=== PATIENT | female | born 1965 | race Caucasian/White ===

== ENCOUNTER 2023-09-22 13:38 | Outpatient (RCR) | payer OTHER, SELFPAY ==
[2023-09-22 14:00] VITALS: BP 116/80
[2023-09-22 14:45] VITALS: BP 116/67; BP 120/77
== END 2023-10-02 23:59 | disposition home or self-care (01) ==
LOC: OID 13:38
PROVIDERS: ATTENDING PHYSICIAN Internal Medicine Hematology & Oncology; FAMILY PHYSICIAN Family Medicine
DX: E83.110 Hereditary hemochromatosis (principal)
CPT/HCPCS: 99195

== ENCOUNTER 2023-11-20 14:38 | Outpatient (RCR) | payer OTHER, SELFPAY ==
[2023-11-20 14:50] VITALS: BP 153/89
[2023-11-20 15:40] VITALS: BP 139/89
[2023-11-20 15:45] VITALS: BP 139/89
== END 2023-12-02 23:59 | disposition home or self-care (01) ==
LOC: OID 14:38
PROVIDERS: ATTENDING PHYSICIAN Internal Medicine Hematology & Oncology; FAMILY PHYSICIAN Registered Nurse
DX: E83.110 Hereditary hemochromatosis (principal)
CPT/HCPCS: 99195

== ENCOUNTER 2024-02-10 14:21 | Outpatient (RCR) | payer OTHER, SELFPAY ==
[2024-02-10 15:00] VITALS: BP 123/86
[2024-02-10 15:30] VITALS: BP 135/72
[2024-02-10 15:35] VITALS: BP 126/64
== END 2024-02-11 10:53 | disposition home or self-care (01) ==
LOC: OID 14:21
PROVIDERS: ATTENDING PHYSICIAN Internal Medicine Hematology & Oncology; FAMILY PHYSICIAN Registered Nurse
DX: E83.110 Hereditary hemochromatosis (principal)
CPT/HCPCS: 99195

== ENCOUNTER → 2024-03-08 06:29 | Day surgery (SDC) | payer OTHER, SELFPAY | LOC: GI 06:29 | PROVIDERS: ATTENDING PHYSICIAN Internal Medicine | DX: Z12.11 Encounter for screening for malignant neoplasm of colon (principal); D12.5 Benign neoplasm of sigmoid colon; K64.4 Residual hemorrhoidal skin tags; Z86.010 Personal history of colon polyps | CPT/HCPCS: 45385; 88305 ==

== ENCOUNTER 2024-04-08 13:48 | Outpatient (RCR) | payer OTHER, SELFPAY ==
[2024-04-08 14:10] VITALS: BP 116/78
[2024-04-08 14:53] VITALS: BP 134/59
[2024-04-08 14:56] VITALS: BP 151/78
== END 2024-04-09 11:40 | disposition home or self-care (01) ==
LOC: OID 13:48
PROVIDERS: ATTENDING PHYSICIAN Internal Medicine Hematology & Oncology; FAMILY PHYSICIAN Family Medicine
DX: E83.110 Hereditary hemochromatosis (principal)
CPT/HCPCS: 99195

== ENCOUNTER 2024-06-03 14:27 | Outpatient (RCR) | payer OTHER, SELFPAY ==
[2024-06-03 14:45] VITALS: BP 109/68
[2024-06-03 15:25] VITALS: BP 105/69
[2024-06-03 15:30] VITALS: BP 109/66
== END 2024-06-03 23:59 | disposition home or self-care (01) ==
LOC: OID 14:27
PROVIDERS: ATTENDING PHYSICIAN Internal Medicine Hematology & Oncology; FAMILY PHYSICIAN Family Medicine
DX: E83.110 Hereditary hemochromatosis (principal)
CPT/HCPCS: 99195

== ENCOUNTER → 2024-06-07 13:23 | Outpatient (REF) | payer OTHER, SELFPAY | LOC: HWWDC 13:23 | PROVIDERS: ATTENDING PHYSICIAN Family Medicine | DX: Z12.31 Encounter for screening mammogram for malignant neoplasm of breast (principal) | CPT/HCPCS: 77063; 77067 ==

== ENCOUNTER 2024-07-31 16:57 | Inpatient (IN) | payer OTHER, SELFPAY ==
[2024-07-31] VITALS (12 sets, daily range): BP systolic 101–145; BP diastolic 63–98; BMI 19.4; BMI 19.2
[2024-07-31] MEDS: LOW STRENGTH ASPIRIN 324 MG PO (15:24)
[2024-07-31] MEDS: NITROSTAT (SUBLINGUAL) 0.4 MG SL (15:24)
--- NOTE | 2024-07-31 15:32 | ED.GENMED ---
History of Present Illness
General
Chief Complaint: Chest Pain
Source: patient
Exam Limitations: none
Time Seen by Provider: 07/31/24 15:15
Nursing documentation reviewed up to this point in time: agreed with
History of Present Illness
History of Present Illness:
59-year-old female with a past medical history of hyperlipidemia, migraines who presents to the emergency department for evaluation of chest pain. 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 She says that
pain lasted for about 30 minutes and resolved when she went upstairs to rest. She says pain returned shortly thereafter and once again resolved with some rest. She says just prior to arrival symptoms started again and they have been consistent and
much more intense which prompted her to finally come to the ER. She describes a crushing substernal chest pain associated with shortness of breath. She denies any recent illness or cough but says she has been under significant stress recently.
She says she has never had similar symptoms in the past that she said she has had chest pains from panic attacks/anxiety but never pains like today. She denies any personal history of heart disease but has seen Dr. Owen in the past for
evaluation after she was found to have a trace pericardial effusion. She does have a strong family history of heart disease says that both her sister and mother had PR.
Review of Systems
Review of Systems
All Other Systems: ROS reviewed and negative except as documented in HPI and ROS
Constitutional: Denies fever or chills
Respiratory: Reports trouble breathing
Cardiac: Reports chest pain
ABD/GI: Denies abdominal pain, nausea, vomiting or diarrhea
: Denies flank pain
Musculoskeletal: Denies neck pain or back pain
Neurological: Denies dizzy or headache
Phy Exam
Physical Exam
Physical Exam:
General: Awake, alert, oriented x3; anxious but no acute distress
Head: Normocephalic, atraumatic
Eyes: Conjunctiva normal
Throat: Airway intact, handling secretions
Neck: Trachea midline, supple without meningismus
Lungs: Clear to auscultation bilaterally, no wheezing, rales, rhonchi
Heart: Regular rate and rhythm, no murmurs, gallops, or rubs
Abd: Soft, non distended, nontender
Neuro: Cranial nerves grossly intact, speech fluid
Extremities: No edema in extremities, equal pulses in all extremities
Scores
Heart Failure Risk
Heart Failure Risk Score: Not Applicable
Heart Score for Chest Pain Patients
STEMI patient?: No
History: Highly Suspicious
ECG: Nonspecific Repolarization
Age: >45 - <65 years
Risk Factors: 1 or 2 Risk Factors
Troponin: >/= 3 x Normal Limit
Heart Score for Chest Pain Patients: 7
Heart Score Risk: 72.7 % MACE over next 6 weeks
Withdrawal Assessment of Alcohol
Withdrawal Assessment Completed?: Not applicable
Course
Orders/Labs/Results
Orders:
Orders
07/31/24 15:04
Electrocardiogram (*1) Urgent
Reason for Study: Chest Pain
EKG- Treatment ONCE
07/31/24 15:05
CXR2 [CR Chest - 2 Views ] Urgent
Comment:
Reason For Exam: chest pain
07/31/24 15:15
Electrocardiogram (*1) Urgent
Reason for Study: Chest Pain
EKG- Treatment ONCE
07/31/24 15:22
Complete Blood Count/With Diff Urgent
Comprehensive Metabolic Panel Urgent
Troponin I Urgent
07/31/24 15:23
Aspirin Chewable [Low Strength Aspirin] 324 mg PO NOW STA
07/31/24 15:24
Nitroglycerin 100 mg/250 ml [Nitroglycerin Premix] 100 mg in 250 ml IV NOW
Initial dose in mcg/min, then titrate:: 5
Titrate to keep:: SBP < 160 mmHg
Titrate by mcg/min:: 5 mcg/min, may increase by 10 mcg/min if dose > 20 mcg/min
Frequency of titrations (minutes):: every 3-5 minutes
Maximum dose in mcg/min:: 200
Begin to taper infusion when:: Remained at goal for 2hrs
Taper by mcg/min:: 5 mcg/min
Frequency of taper (minutes) if patient maintains goal:: 30
Taper to off?: Yes
If infusion off & no longer maintaining goal:: Contact Provider
Nitroglycerin Sublingual [Nitrostat (Sublingual)] 0.4 mg SL NOW STA
07/31/24 15:32
Electrocardiogram (*1) Urgent
Reason for Study: Chest Pain
EKG- Treatment ONCE
07/31/24 15:49
Heparin 3,300 units IV NOW STA
Nursing to Place Non Medication Order As Directed
Physician Order: PTT 6 hours after initial start of Heparin infusion
07/31/24 16:00
Heparin 61747 Units/250 ml 25,000 units in 250 ml IV PER PROTOCOL
Weight to be used for heparin protocol in kilograms (kg):: 54.4
Protocol:: Cardiac Tx/Acute Coronary
PTT Goal Range to be used:: PTT 73 to 111 seconds
Order type:: Initial
INITIAL Infusion Dose (UNITS/KG/hr) & then follow protocol:: 15 units/kg/hr
Infusion Dose in UNITS/hr & then follow protocol (UNITS/hr):: 800
INFUSION RATE in mL/hr & then follow protocol (mL/hr):: 8
PTT less than or equal to 64 seconds:: Increase rate by 200 units/hr (+ 2 mL/hr)
PTT 64.1 to 72.9 seconds:: Increase rate by 100 units/hr (+ 1 mL/hr)
PTT 73 to 111 seconds:: Target Range. No change in rate.
PTT 111.1 to 130.9 seconds:: Decrease rate by 100 units/hr (- 1 mL/hr)
PTT 131 to 199.9 seconds:: HOLD for 1 hr. Then decrease rate by 200 units/hr (- 2 mL/hr)
PTT greater than or equal to 200 seconds:: HOLD for 2 hrs & Notify Provider. Then decrease by 200 units/hr (-
2 mL/hr)
Lab follow-up:: Each change, PTT q6h until 2 consecutive are therapeutic. Then PTT
daily.
07/31/24 16:20
Electrocardiogram (*1) Urgent
Reason for Study: Chest Pain
EKG- Treatment ONCE
07/31/24 16:30
Troponin I Q8H
07/31/24 16:34
Admit/Transfer Patient As Directed
Co-Sign Provider:
Level of Care: Inpatient admission
Assign to:: IVU
Physician / Group: anai
Diagnosis: nstemi
Reason for Hospitalization: nstemi
Expected length of stay greater than two midnights?: Yes
ELOS- Estimated Length of Stay in days: 2
I certify the patient meets the requirements for IP care: Yes
PRN Pain Medication Management As Directed
May give lesser potent ordered pain med per pt: Yes
preference::
Protocol:: Medication orders for pain may be administered in a
manner that supports deferring to patient preference
when the pt is:
- Requesting an ordered lesser potent pain medication.
Least to most potent pain medications are defined
as: acetaminophen < NSAID < tramadol < opioids
(morphine, oxycodone, hydromorphone).
- Requesting a lesser dose of the same medication IF
ORDERED.
- Requesting a less intrusive route of administration
if both routes are prescribed by the provider (PO <
IV).
07/31/24 16:35
Code Status As Directed
Resuscitation Status: Full Code
07/31/24 17:08
PTT Urgent
Comment: Obtain baseline before beginning heparin infusion if not already collected
07/31/24 18:00
Rosuvastatin Calcium [Crestor] 40 mg PO QPM
08/01/24 00:30
Troponin I Q8H
08/01/24 08:00
Aspirin Chewable [Low Strength Aspirin] 81 mg PO DAILY
08/01/24 08:30
Troponin I Q8H
Abnormal Lab Results
07/31/24
15:22
MCH 31.8 H pg
(27.0-31.0)
BUN 19 H mg/dl
(7-17)
Glucose 142 H mg/dl
(70-99)
Alkaline Phosphatase 36 L U/L
(38-126)
Troponin I 0.038 H* ng/ml
07/31/24 15:22
07/31/24 15:22
Vital Signs
Initial and Last Documented VS:
Initial Vital Signs
Pulse Resp BP Pulse Ox
56 18 132/93 100
07/31/24 15:12 07/31/24 15:12 07/31/24 15:12 07/31/24 15:12
Last Documented Vital Signs
Temp Pulse Resp BP Pulse Ox
36.4 C 68 22 120/96 100
07/31/24 15:20 07/31/24 16:31 07/31/24 16:31 07/31/24 16:31 07/31/24 16:31
MDM/Problems Addressed
Differential Diagnosis Includes:
ACS/PR, GERD, costochondritis, panic attack; PE less likely with no tachycardia or tachypnea or hypoxia; aortic dissection less likely without significant hypertension
MDM/Problems Addressed:
59-year-old female presents for evaluation of crushing chest pain intermittent earlier today and now constant and more intense. Associate with mild shortness of breath. EKG on arrival shows some inferior ST depressions and anterior T wave
inversions new compared to prior. Brought back to room immediately. Case discussed with bail bondsman�no ST elevations indication for emergent Academic Dean for now but recommended optimal medical treatment and try to get patient chest
pain-free. She was given 324 mg chewable aspirin and sublingual nitro�this improved her chest pain from 7/8 out of 10 to a 6 out of 10. Will start on nitroglycerin infusion. Usual labs sent off including a CBC and a CMP, troponins. Check a chest
x-ray. Monitor very closely�if unable to improve chest pain may need more urgent cardiac catheterization. I did discuss with general cardiology to evaluate in the ER.
Chest pain improvement with nitroglycerin. Serial EKGs show improving ST changes. Continue to monitor and titrate nitroglycerin for chest pain resolution.
Cardiology at bedside, proceed with nitroglycerin infusion to improve chest pain, will empirically start heparin infusion. Given 324 chewable aspirin. Plan for hospital admission however if unable to control chest pain with nitroglycerin infusion
may consider more expeditious cardiac cath.
Initial labs reviewed: CBC and CMP no clinically significant abnormalities. Her troponin is elevated at 0.038. Will continue to trend. Titrate nitro to chest pain. Discussed with hospitalist for admission for continued treatment of NSTEMI.
Patient reports that she is now chest pain-free on nitroglycerin infusion. Updated bail bondsman�if chest pain returning or precipitous rise in troponins consider more urgent cath but for now continue with medical management.
Chronic conditions affecting care:
Hyperlipidemia
*Pulse Oximetry
Patient hypoxic: no
*EKG
Interpreted by ED Provider?: Yes
Heart Rate: 53
Rate: normal
Rhythm: sinus
Reese: normal axis
Interval: normal interval
QRS Pattern: normal QRS
Ischemia: ST depression
*Critical Care Note
Total Time (30-74mins, 75-104mins- exclusive of procedures): Not Applicable
Data Reviewed
Source: patient, records and family
Patient Management
Discussion with other providers: Contact Person (Discussed with interventional cardiology, discussed with general cardiology)
Escalation/DeEscalation of care consider admission/obs:
Admission indicated
ED Attending Note
-
Portions of this chart may have been created with voice recognition software.� Occasional wrong word or��sound alike� substitutions may have occurred due to the inherent limitations of voice recognition software.
Discharge Plan
Departure
Patient Disposition: Admit
Date of Disposition: 07/31/24
Time of Disposition: 16:06
Admit to doctor: Anai
Presentation/result/management discussed w/ accepting MD/DO: Hospitalist
Discharge Problem:
Non-ST elevation PR (NSTEMI)
Interventions
Interventions:
*Risk Screen - Suicide Last Done: 07/31/24 15:16
*General Assessment Last Done: 07/31/24 15:16
*Neglect/Abuse Screening Last Done: 07/31/24 15:16
ED- Fall Risk Assessment Last Done: 07/31/24 16:06
*ED COVID-19 Vaccine History Last Done: 07/31/24 15:50
ED- Cardiac Assessment Last Done: 07/31/24 15:51
[2024-07-31 15:33] LABS: % Basophils 0.6 % (0-2); % Eosinophils 0.6 % (0-6); % Immature Granulocytes 0.5 % (0-0.5); % Monocytes 7.5 % (1.7-9.3); % Neutrophils 64.8 % (42.2-75.2); Absolute Basophils 0.1 10^3/uL (0-0.2); Absolute Eosinophils 0.1 10^3/uL (0-0.7); Absolute Lymphocytes 2.1 10^3/uL (1.2-3.4); Absolute Monocytes 0.6 10^3/uL (0.1-0.6); Absolute Neutrophils 5.3 10^3/uL (1.4-6.5); Hematocrit 41.3 % (37.0-47.0); Hemoglobin 14.6 g/dL (12.0-16.0); Mean Corp Hgb Conc. 35.4 g/dL (33.0-37.0); Mean Corpuscular Hgb 31.8 pg (27.0-31.0); Mean Platelet Volume 8.8 fL (7.4-10.4); Nucleated Red Blood Cells % 0 %; Platelet Count 261 10^3/uL (130-400); Red Blood Cell Count 4.59 10^6/uL (4.20-5.40); Red Cell Dist. Width 12.1 % (11.5-14.5); White Blood Cell Count 8.1 10^3/uL (4.8-10.8)
[2024-07-31] MEDS: NITROGLYCERIN PREMIX 250 IV (15:42)
[2024-07-31 15:45] LABS: ALT (SGPT) 20 U/L (0-35); AST (SGOT) 27 U/L (14-36); Albumin 4.6 g/dl (3.5-5.0); Alkaline Phosphatase 36 U/L (38-126); Blood Urea Nitrogen 19 mg/dl (7-17); Calcium 9.9 mg/dl (8.4-10.2); Carbon Dioxide 23 mmol/L (22-30); Chloride 102 mmol/L (98-107); Estimated Creatinine Clearance 73 ml/min; Glucose 142 mg/dl (70-99); Potassium 3.6 mmol/L (3.5-5.1); Sodium 137 mmol/L (135-145); Total Bilirubin 0.4 mg/dl (0.2-1.3); Total Protein 6.8 g/dl (6.3-8.2); eGFR > 60.00
[2024-07-31 16:00] LABS: Troponin I 0.038 ng/ml
--- NOTE | 2024-07-31 16:05 | CON.CAR ---
Consultation
Consultation Request
Date/Time Consultation Requested: July 31, 2024 3:20 PM
Date/Time Consultation Performed: July 31, 2024 4:05 PM
Requesting Provider: Emergency room
Performing Provider: Geraldo Castano
Reason for Consultation: Chest pain
Medical History
-
Chief Complaint: Chest pain
History of Present Illness:
59-year-old female with past medical history of dyslipidemia, migraine, osteoporosis and family history of early CAD who is here for sudden onset of chest pain. She tells me that she was fine up until this afternoon at about 1 or 130. She
developed sudden onset of substernal chest pain. She describes it as squeezing and pressure-like. It also radiates down to her bilateral arms. She thought this was anxiety related sat down and it went away shortly thereafter. However, it came
back twice and after the third time it did not go away and she decided to present to the emergency room. She did have emesis as well en route to the emergency room. Upon review of ECG she does have ST depressions in the inferior leads. She was
given sublingual nitroglycerin with some relief and is now on a nitroglycerin drip. She has had 1 episode of emesis as well.
Past Medical History
Past Medical History: Other (Dyslipidemia, osteoporosis, migraine and family history of early CAD)
Past Surgical History: None
Social History
Tobacco: Non-Smoker
Alcohol: None
Personal:
Family History
Family History: CAD
Allergies / Home Medications
Allergy/AdvReac Type Severity Reaction Status Date / Time
No Known Allergies Allergy Verified 07/31/24 15:16
�Medication �Instructions �Recorded �Confirmed �Type
magnesium oxide 1 cap PO DAILY 01/14/22 06/03/24 History
calcium 220 mg capsule 400 mg PO DAILY 04/22/22 06/03/24 History
alendronate 40 mg tablet 40 mg PO .WEEKLY 08/06/22 06/03/24 History
rizatriptan 10 mg tablet 10 mg PO PRN PRN MIGRAINE 10/24/22 06/03/24 History
rosuvastatin 10 mg tablet 10 mg PO HS 10/24/22 06/03/24 History
cholecalciferol (vitamin D3) 25 25 mcg PO DAILY 04/08/24 06/03/24 History
mcg (1,000 unit) capsule (Vitamin
D3)
rimegepant 75 mg disintegrating 75 mg PO .EVERYOTHER DAY 06/03/24 06/03/24 History
tablet (Nurtec ODT)
Review of Systems
-
All other systems: Negative unless noted
Physical Exam
Vital Signs
Temp Pulse Resp BP Pulse Ox
97.5 F 80 19 130/80 99
07/31/24 15:20 07/31/24 15:45 07/31/24 15:45 07/31/24 15:40 07/31/24 15:45
Lab Results
07/31/24 15:22
07/31/24 15:22
Troponin I 0.038 ng/ml H* 07/31/24 15:22
Physical Exam
General: Well Developed, Well Nourished and Pain
HEENT: Normocephalic and Anicteric
Respiratory: Clear and Non Labored Respirations
Cardiac: Regular Rhythm and Other (No murmur rub or gallop)
GI: Soft
Musculoskeletal: No Clubbing and No Edema
Skin: Warm and Dry
Neuro: AO x 3
Psych: Calm
Impression / Plan
-
A: 59-year-old female with past medical history of dyslipidemia, migraine, osteoporosis and family history of early CAD who is here for sudden onset of chest pain.
NSTEMI with positive troponin and typical anginal symptoms
If she continues to have chest pain and symptoms of angina despite nitroglycerin drip this would prompt early intervention
-Aspirin, heparin, nitro drip
-Statin
-trend troponin
-ECG with new/worsening CP
-Echocardiogram
-She is currently normotensive and heart rate is well-controlled
-Current plan would be for Hydroelectric Machinery Mechanic Helper Friday with n.p.o. after midnight on Friday if she does not have further chest pain or other symptoms
Dyslipidemia
-Increase rosuvastatin to 40 nightly
Migraine
Osteoporosis
Data Reviewed
-
EKG: Tracing Personally Visualized and interpreted (sr), Report Reviewed by me, Discussed with Physician, Discussed with Nurse and Discussed with Patient
Labs: Labs Reviewed by me, Discussed with Physician, Discussed with Patient and Discussed with Family
--- NOTE | 2024-07-31 16:36 | HPS.HSE ---
Family Physician
-
Family Physician: Lindy Tran
Chief Complaint
-
chest pain
History of Present Illness
59-year-old female past medical history of hemochromatosis, osteoporosis, hyperlipidemia, migraines, presenting for chest pain. She developed chest pain 2 hours prior to arrival while she was hosting a [employer] party. Pain lasted for 30 minutes
and resolved when she went upstairs to rest. Pain returned shortly thereafter and resolved with some rest. Symptoms started again and were much more severe. Pain is described as crushing substernal chest pain associate with shortness of breath.
She denies any recent illness or cough but has been under significant amount of stress recently. She has had chest pain in the past due to panic attacks that/anxiety never pain like this today. She denies any personal history of heart disease but
has seen Dr. Torre in the past after she was found to have trace pericardial effusion.
Pain also radiates into the abdomen. She is having vomiting. Denies diarrhea.
Denies smoking or alcohol use.
Medical History
Past Medical History
Past Medical History: Reports Other ( hemochromatosis, osteoporosis, hyperlipidemia, migraines)
Past Surgical History: Reports None
Social History
Tobacco: Non-smoker
Alcohol: None
Drug: None
Family History
Family History: Other ( Her sister and mother had DC.)
Allergies / Home Medications
Allergies reflects when Allergies were last updated in [facility].
Home Medications with original date entered in [facility]
Allergy/Medication List:
Allergies
Allergy/AdvReac Type Severity Reaction Status Date / Time
No Known Allergies Allergy Verified 07/31/24 15:16
Home Medications
magnesium oxide 1 cap PO DAILY 01/14/22
calcium 220 mg capsule 400 mg PO DAILY 04/22/22
alendronate 40 mg tablet 40 mg PO .WEEKLY 08/06/22
rizatriptan 10 mg tablet 10 mg PO PRN PRN MIGRAINE 10/24/22
rosuvastatin 10 mg tablet 10 mg PO HS 10/24/22
cholecalciferol (vitamin D3) 25 mcg (1,000 unit) capsule (Vitamin D3) 25 mcg PO DAILY 04/08/24
rimegepant 75 mg disintegrating tablet (Nurtec ODT) 75 mg PO .EVERYOTHER DAY 06/03/24
Review of Systems
-
History Source: Patient
A 12 point ROS was completed and negative except as noted: Yes
Constitutional: Reports No Symptoms
EENT: Reports No Symptoms
Respiratory: Reports See HPI
Cardiac: Reports See HPI
Abdomen/GI: Reports See HPI
: Reports No Symptoms
Musculoskeletal: Reports No Symptoms
Skin: Reports No Symptoms
Neurological: Reports No Symptoms
Endocrine: Reports No Symptoms
Hematologic/Lymphatic: Reports No Symptoms
Psych: Reports No Symptoms
Physical Exam
Vital Signs
Vital Signs
Temp Pulse Resp BP Pulse Ox
97.5 F 68 22 120/96 100
07/31/24 15:20 07/31/24 16:31 07/31/24 16:31 07/31/24 16:31 07/31/24 16:31
Physical Exam
General: Well Developed, Well Nourished and No Apparent Distress
HEENT: NormoCephalic, Moist mucous membranes and Atraumatic
Respiratory: Clear
Cardiac: S1/S2 and Regular Rhythm; No Murmur or Rub
GI: Soft, Non Tender, Non Distended and Normal Bowel Sounds; No Organomegaly
Rectal: Deferred by Provider
Musculoskeletal: No Clubbing, No Cyanosis and No Edema
Skin: No Rash
Neuro: Nonfocal/grossly intact
Laboratory Results
-
07/31/24 15:22
07/31/24 15:22
Laboratory Results
Total Bilirubin 0.4 mg/dl (0.2-1.3) 07/31/24 15:22
AST 27 U/L (14-36) 07/31/24 15:22
ALT 20 U/L (0-35) 07/31/24 15:22
Alkaline Phosphatase 36 U/L (38-126) L 07/31/24 15:22
Troponin I 0.038 ng/ml H* 07/31/24 15:22
Data Reviewed
-
Lab Data: Labs Reviewed by me
Old Records: Reviewed
Impression/Plan
-
IMPRESSION:
PLAN:
# NSTEMI
-Troponin of 0.038
-EKG shows sinus bradycardia, T wave inversions V1, V2
-Trend troponins
-Aspirin given
-Heparin drip
-Nitroglycerin drip
-Cardiology consulted and recommended monitoring troponins and if worsening condition they will take to catheterization tonight
-N.p.o., Zofran
-Statin increased
Hemochromatosis
Osteoporosis
Hyperlipidemia
-Continue statin
Migraines
Full code
DVT prophylaxis�heparin
N.p.o.
[2024-07-31] MEDS: HEPARIN 3300 UNITS IV (17:00)
[2024-07-31] MEDS: HEPARIN 25000 UNITS/250 ML IV (17:01)
[2024-07-31 17:24] LABS: APTT 25.6 Sec (23.4-35.0)
[2024-07-31] MEDS: TYLENOL 1000 MG PO (17:30)
[2024-07-31] MEDS: CRESTOR 40 MG PO (21:11)
[2024-07-31] MEDS: KCL 40 MEQ PO (21:12)
[2024-07-31] MEDS: MAXALT MLT (ORALLY DISINTEGRATING) 10 MG PO (21:12)
[2024-07-31 21:31] LABS: Magnesium 1.9 mg/dl (1.6-2.3)
[2024-07-31] MEDS: MAGNESIUM SULFATE 100 IV (22:18)
--- NOTE | 2024-07-31 23:32 | PTCARENOTE ---
Pt received from ED ~1900 and admitted to room 0. Pt AAOx3. GOEL. Pt transitioned onto IVU bed w/ minimal assist. Pt SR w/ frequent PVCs on the tele monitor. HR 60-70s. BP stable. No edema. Palpable pulses throughout. Pt 96-98% on RA. Lung sounds
audible B/L. Pt abdomen soft/nontender.
+BS. Intermittent nausea. Pt voiding w/o issue. PIV x2 C/D/I. Heparin and Nitro infusing upon arrival. Monitor handoff communication completed w/ ED nurse. Admission questioned completed. Pt oriented to room.
Pt had 14 beat run ~ 2038 and felt a 'flutter' in her chest. BP 109/74. HR remained in the 60-70s. At the same time, pt also c/o headache. Pt w/ history of migraines. LEAD TECHNICIAN Victoria Mary notified. KCl 40 meq PO, magnesium sulfate, and pt home med for
migraines ordered and administered - see OCT.
See worklist for full nursing assessment and interventions. Call silva within reach.
[2024-07-31 23:35] LABS: APTT 118.8 Sec (23.4-35.0)
[2024-08-01] VITALS (16 sets, daily range): BP systolic 94–117; BP diastolic 41–93; BMI 19.3
[2024-08-01] MEDS: TYLENOL 650 MG PO ×3 (00:04→19:28)
[2024-08-01] MEDS: ZOFRAN 4 MG IV (01:14)
[2024-08-01 05:41] LABS: % Basophils 0.1 % (0-2); % Eosinophils 0.2 % (0-6); % Immature Granulocytes 0.2 % (0-0.5); % Monocytes 4.2 % (1.7-9.3); % Neutrophils 84.3 % (42.2-75.2); Absolute Lymphocytes 0.9 10^3/uL (1.2-3.4); Absolute Monocytes 0.4 10^3/uL (0.1-0.6); Absolute Neutrophils 7.1 10^3/uL (1.4-6.5); Hematocrit 36.3 % (37.0-47.0); Hemoglobin 12.5 g/dL (12.0-16.0); Mean Corp Hgb Conc. 34.4 g/dL (33.0-37.0); Mean Corpuscular Hgb 31.6 pg (27.0-31.0); Mean Corpuscular Volume 91.9 fL (81.0-99.0); Mean Platelet Volume 9.3 fL (7.4-10.4); Nucleated Red Blood Cells % 0 %; Platelet Count 225 10^3/uL (130-400); Red Blood Cell Count 3.95 10^6/uL (4.20-5.40); Red Cell Dist. Width 12.3 % (11.5-14.5); White Blood Cell Count 8.4 10^3/uL (4.8-10.8)
[2024-08-01 05:50] LABS: APTT 93.3 Sec (23.4-35.0)
[2024-08-01 06:05] LABS: ALT (SGPT) 31 U/L (0-35); AST (SGOT) 167 U/L (14-36); Albumin 4.1 g/dl (3.5-5.0); Alkaline Phosphatase 29 U/L (38-126); Blood Urea Nitrogen 21 mg/dl (7-17); Carbon Dioxide 25 mmol/L (22-30); Chloride 102 mmol/L (98-107); Estimated Creatinine Clearance 73 ml/min; Glucose 139 mg/dl (70-99); Potassium 4.5 mmol/L (3.5-5.1); Sodium 134 mmol/L (135-145); Total Bilirubin 0.8 mg/dl (0.2-1.3); Total Protein 6.2 g/dl (6.3-8.2); eGFR > 60.00
[2024-08-01] MEDS: LOW STRENGTH ASPIRIN 81 MG PO (07:52)
[2024-08-01] MEDS: MAXALT MLT (ORALLY DISINTEGRATING) 10 MG PO (07:54)
--- NOTE | 2024-08-01 09:09 | W.PN.HOSP.TC ---
Today's Communication/Plan
-
see bold
Assessment / Plan
Assessment / Plan
Gen: NAD, AAOx3.
Eyes: EOMI, PERRLA, no scleral icterus.
Neck: supple.
CV: RRR, +S1/S2, no m/r/g.
Resp: CTAB, no rales, wheezes, or rhonchi.
Abd: +BS, soft, NT, ND
Skin: No rashes.
Neuro: CN 2-12 intact, non-focal.
Psych: Normal mood and affect.
NSTEMI:
-Troponin increased to 31, appears to have plateaued, cont to trend
-EKG showed sinus bradycardia, TWi V1-V2 on admission. Repeat ECG with mild TWi in V1.
-cont Heparin/NTG gtts
-cont ASA/statin
-for cath, timing TBD
-check echo
Other problems:
Hemochromatosis
Osteoporosis
Hyperlipidemia: cont statin
Migraines
FULL/heparin gtt
Anticipated Discharge: 24 - 48 hours
Subjective/Interval History
-
Date of Service: August 01, 2024
Reports R-sided chest discomfort.
Objective Data
-
Labs:
Laboratory Results
07/31/24 08/01/24 08/01/24
23:17 05:23 11:30
WBC 8.4
Hgb 12.5
Hct 36.3 L
Plt Count 225
APTT 118.8 H 93.3 H Pending
Sodium 134 L
Potassium 4.5
Chloride 102
Carbon Dioxide 25
BUN 21 H
Creatinine 0.7
Glucose 139 H
Calcium 9.0
Total Bilirubin 0.8
AST 167 H
ALT 31
Alkaline Phosphatase 29 L
Vital Signs:
Vital Signs
Temp Pulse Resp BP Pulse Ox
98.4 F 64 20 111/66 99
08/01/24 07:38 08/01/24 07:15 08/01/24 07:38 08/01/24 05:16 08/01/24 07:38
I&O
07/31/24 08/01/24 08/02/24
06:59 06:59 06:59
Intake Total 104 / 104
Balance 104 / 104
--- NOTE | 2024-08-01 10:00 | PTCARENOTE ---
Assumed care. Patient with 1 out 10 right chest pressure, headache is resolving. Nitro gtt at 5 mcg/min and heparin gtt 700 units per hour. Troponin climbing. laborer tree tapping activated
--- NOTE | 2024-08-01 10:38 | PTCARENOTE ---
Report called to the record label intern, Patient transported in her bed. in her room
[2024-08-01 11:06] LABS: ACT-LR - POC 210 Seconds (116-155)
--- NOTE | 2024-08-01 11:28 | W.PN.CD ---
Today's Communication / Plan
-
Cath today
Impression / Plan
-
A: 59-year-old female with past medical history of dyslipidemia, migraine, osteoporosis and family history of early CAD who is here for sudden onset of chest pain.
NSTEMI with positive troponin and typical anginal symptoms
If she continues to have chest pain and symptoms of angina despite nitroglycerin drip this would prompt early intervention
-Aspirin, heparin, nitro drip
-Statin
-ECG with new/worsening CP
-Echocardiogram Friday
-sawyer cork slabs today
Dyslipidemia
-Increase rosuvastatin to 40 nightly
Migraine
Osteoporosis
Subjective: Dull aching slight right axillary pain, no CP or jaw pain, migraine and nausea
Physical Exam
Vital Signs/Labs
Vital Signs
Temp Pulse Resp BP Pulse Ox
98.4 F 63 20 111/93 99
08/01/24 07:38 08/01/24 10:00 08/01/24 07:38 08/01/24 09:52 08/01/24 07:38
07/31/24 08/01/24 08/02/24
06:59 06:59 06:59
Actual Weight 119 lb 7.849 oz
08/01/24 05:23
08/01/24 05:23
APTT 93.3 Sec (23.4-35.0) H 08/01/24 05:23
Magnesium 1.9 mg/dl (1.6-2.3) 07/31/24 15:22
LAB Results
07/31/24 07/31/24 07/31/24
15:22 18:47 19:01
Troponin I 0.038 H* 7.530 H* D Cancelled
08/01/24 08/01/24 08/01/24
01:17 05:23 08:39
Troponin I 31.200 H* D 31.300 H* 31.300 H*
Physical Exam
Constitutional: No acute distress and Comfortable
EENT: Anicteric
Cardiovascular: Rhythm & rate is regular and Pedal edema is absent
Respiratory: Respiratory effort normal and Lungs clear to auscul.
GI: Soft
Neuro/Psych: AO x 3
Data Reviewed
-
Date of Service: August 01, 2024
Medical Decision Making: Reviewed Test Results
EKG: Tracing Personally Visualized and interpreted (sr)
Labs: Labs Reviewed by me
--- NOTE | 2024-08-01 11:31 | ITS.CL.CATH ---
Tool Worker - Catheterization
Cardiac Catheterization
Procedure Report:
LEFT HEART CATHETERIZATION
Date of Procedure: August 01, 2024
Referring: Dr. Geraldo Castano
PROCEDURES:
1. Left heart catheterization with coronary and single plane left ventriculography
INDICATION: This is a 59 y/o female with no prior cardiac history who presented to [facility] after the development of substernal chest discomfort and associated neck and jaw pain. She became chest pain free. Her troponin peaked at 31
ng/ml. She continued to experience right axillary discomfort and the decision was made to refer for coronary angiography.
ACCESS: Right radial artery, 6 Fr. sheath
HEMODYNAMICS : (mmHg)
AO (s/d) : 117/67, 89
LV (s/d) : 118/7
LVEDP : 20
CORONARY FINDINGS
DOMINANCE: Right
LEFT MAIN: Normal
LEFT ANTERIOR DESCENDING: The LAD arises normally from the left main and runs in the anterior interventricular groove. The LAD is a large-caliber vessel with a moderate-sized first diagonal branch arising just proximal to the first large septal
instant potato processor. The mid LAD beyond the first diagonal branch has a smooth tapering and possible myocardial bridge. The mid to distal LAD becomes very tortuous but angiographically normal
CIRCUMFLEX: The circumflex arises from the left main with a long tapered segment from the proximal through mid vessel filling a normal caliber obtuse marginal branch distally. It is difficult to tell angiographically if there is a missing AV
circumflex or terminal obtuse marginal branch. No collaterals are noted. The angiographic appearance of the circumflex is most consistent with type II spontaneous coronary dissection
RIGHT CORONARY ARTERY: The right coronary artery is a large-caliber dominant vessel that is widely patent over its course and supplies a medium caliber PDA and posterolateral branch
VENTRICULOGRAPHY: Left ventriculography was performed in ROSS projection. The digital single-plane left ventricular ejection fraction is visually estimated at 50% with anterolateral hypokinesis
RADIATION SUMMARY: Fluoro Time (min): 5.2, Dose (mGy): 198.4, DAP (Gy.cm2) : 17.1
Closure Device: TR band
CONCLUSIONS
1. 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
2. Low normal left ventricular systolic function visually estimated at 50% with an anterolateral wall motion abnormality noted.
RECOMMENDATIONS
1. Conservative therapy for angiographic findings
2. Discontinue rizatriptan for now and discuss with neurology
3. Aspirin and clopidogrel for 3-6 months. Oral beta marci titrated as HR and BP tolerate
4. Assessment for concomitant fibromuscular dysplasia as outpatient
5. Exercise limit to 50-70% of PMHR, and avoid lifting more than 20-30 pounds
Copy to: Dr. Geraldo Castano
--- NOTE | 2024-08-01 11:56 | PTCARENOTE ---
Patient received from the grinding and polishing laborer, right radial band intact. 1 out 10 left chest pressure, nitro infusing at 5 mcg/min
[2024-08-01] MEDS: PLAVIX 600 MG PO (12:24)
[2024-08-01] MEDS: TOPROL XL 25 MG PO (12:24)
--- NOTE | 2024-08-01 12:51 | PTCARENOTE ---
Patient up to the bathroom, stand by. Attempted to remove air from the band it did leak, air replaced. Denies chest pain, nitro gtt weaned to off. Verified with Dr. Mc that heparin gtt is to be discontinued. VSS, call silva in reach
[2024-08-01 14:44] LABS: Iron 212 ug/dl (37-170); Percent Saturation 82 % (20-50); Total Iron Binding Capacity 256 ug/dl (265-497)
[2024-08-01 17:53] LABS: Ferritin 24.7 ng/ml (11.1-264.0)
[2024-08-01] MEDS: CRESTOR 40 MG PO (17:58)
--- NOTE | 2024-08-01 20:00 | PTCARENOTE ---
Received pt from day shift RN. AOx3, found in bed NAD. C/o slight headache, see MAR. SR on the monitor rates 60-70's, no edema, + pulses, R radial site CDI. Lungs clear RA. Reports ok appetite, normoactive BS, LBM today per patient. Voiding in the
toilet without difficulty. OOB ad john. Metoprolol held per CVNP d/t hypotension, patient asymptomatic. PIV x2 in RAC and L forearm, #20. Patient updated on POC, in agreement, assessment of needs ongoing, call silva within reach.
[2024-08-01] MEDS: TOPROL XL PO (21:08)
--- NOTE | 2024-08-02 | PTCARENOTE ---
No acute issues, patient sleeping between care, VSS, trop drawn as ordered. Patient denies additional needs at this time, comfortable in bed. Assessment WNL/unchanged.
[2024-08-02 00:10] VITALS: BP 101/65
[2024-08-02] MEDS: TYLENOL 650 MG PO ×3 (00:17→15:59)
[2024-08-02 04:26] VITALS: BP 100/53
[2024-08-02 04:27] VITALS: BP 100/53
--- NOTE | 2024-08-02 04:30 | PTCARENOTE ---
Pt c/o headache not alleviated well by Tylenol, CVNP to order one time Reglan. VSS, assessment otherwise unchanged.
[2024-08-02 05:18] LABS: Hematocrit 40.6 % (37.0-47.0); Hemoglobin 13.7 g/dL (12.0-16.0); Mean Corp Hgb Conc. 33.7 g/dL (33.0-37.0); Mean Corpuscular Hgb 31.8 pg (27.0-31.0); Mean Corpuscular Volume 94.2 fL (81.0-99.0); Platelet Count 184 10^3/uL (130-400); Red Blood Cell Count 4.31 10^6/uL (4.20-5.40); Red Cell Dist. Width 12.6 % (11.5-14.5); White Blood Cell Count 7.8 10^3/uL (4.8-10.8)
[2024-08-02 05:45] LABS: HDL Cholesterol 65 mg/dl; LDL Cholesterol, Calculated 71 mg/dl; Total Cholesterol 149 mg/dl (50-199); Triglyceride 69 mg/dl (10-149); Very Low Density Lipoprotein 13 mg/dl (0-30)
[2024-08-02] MEDS: REGLAN 10 MG IV (06:11)
[2024-08-02 08:03] VITALS: BP 110/66
[2024-08-02 09:11] LABS: Glycohemoglobin (HgbA1c) 5.6 % (4.0-5.6)
[2024-08-02] MEDS: LOW STRENGTH ASPIRIN 81 MG PO (09:40)
[2024-08-02] MEDS: PLAVIX 75 MG PO (09:40)
[2024-08-02] MEDS: TOPROL XL 25 MG PO (09:40)
--- NOTE | 2024-08-02 09:54 | W.PN.HOSP.TC ---
Today's Communication/Plan
-
Discharge today after echocardiogram results come back and are okay
Assessment / Plan
Assessment / Plan
Physical Exam
Gen: NAD
HEENT: Normocephalic.
Neck: supple.
CV: RRR, +S1/S2
Resp: CTAB, no rales, wheezes, or rhonchi.
Abd: +BS, soft, NT, ND
Skin: Warm. Dry.
Neuro: CN 2-12 intact, non-focal.
Psych: Normal mood and affect.
Assessment/Plan
NSTEMI
-Troponin peaked at 31.3
-Cardiac cath showed likely left circumflex spontaneous coronary artery dissection (SCAD)
-Continue asa/plavix DPAT for 3-6 months, followed by Aspirin indefinitely
-If echo looks okay, will discharge today
-Stop Rizatriptan and follow-up/discuss with outpatient neurology
-Exercise limit to 50-70% of PMHR, and avoid lifting more than 20-30 pounds
-Follow-up with Dr. Owen in 2-4 weeks, will need CTA head/neck/CAP to evaluate for FMD (fibromuscular dysplasia) as outpatient
Other problems:
Hemochromatosis
Osteoporosis
Hyperlipidemia: cont statin but at increased dose of 40 mg nightly
Migraines: stop triptans medications given SCAD
FULL CODE
More than 30 minutes spent in discharge including
Final examination of the patient
Summarizing hospital stay
Instructions for continuing care to all relevant caregivers
Preparation of discharge records, prescriptions, and referral forms
Total time spent (in minutes): 37
Anticipated Discharge: Today
Subjective/Interval History
-
Date of Service: August 02, 2024
Patient was seen and examined. She denied any chest pain, shortness of breath or any other symptoms or complaints.
Objective Data
-
Labs:
Laboratory Results
08/01/24 08/02/24
11:30 04:43
WBC 7.8
Hgb 13.7
Hct 40.6
Plt Count 184
APTT Cancelled
Vital Signs:
Vital Signs
Temp Pulse Resp BP Pulse Ox
98.3 F 68 18 110/66 100
08/02/24 08:06 08/02/24 09:40 08/02/24 08:06 08/02/24 09:40 08/02/24 08:06
I&O
08/01/24 08/02/24 08/03/24
06:59 06:59 06:59
Intake Total 104 / 104 1506 / 1506
Balance 104 / 104 1506 / 1506
[2024-08-02 11:16] VITALS: BP 103/66
[2024-08-02 11:28] LABS: ALT (SGPT) 27 U/L (0-35); AST (SGOT) 85 U/L (14-36); Albumin 4.1 g/dl (3.5-5.0); Alkaline Phosphatase 31 U/L (38-126); Blood Urea Nitrogen 13 mg/dl (7-17); Calcium 9.1 mg/dl (8.4-10.2); Carbon Dioxide 27 mmol/L (22-30); Chloride 100 mmol/L (98-107); Estimated Creatinine Clearance 73 ml/min; Glucose 170 mg/dl (70-99); Magnesium 2.1 mg/dl (1.6-2.3); Potassium 4.3 mmol/L (3.5-5.1); Sodium 135 mmol/L (135-145); Total Bilirubin 0.6 mg/dl (0.2-1.3); Total Protein 6.2 g/dl (6.3-8.2); eGFR > 60.00
--- NOTE | 2024-08-02 13:32 | W.PN.CD ---
Today's Communication / Plan
-
echo
home today with current meds
outpatient follow up for FMD screening
Impression / Plan
-
A: 59-year-old female with past medical history of dyslipidemia, migraine, osteoporosis and family history of early CAD who is here for sudden onset of chest pain.
NSTEMI with positive troponin and typical anginal symptoms
-coronary angio demonstrates likely LCx SCAD
-cont. asa/plavix for 3-6 months, asa indefinitely
-beta blockers
-hold triptan medications
-echo today
-exercise limit to 50-70% of PMHR, and avoid lifting more than 20-30 pounds
-plan for discharge this evening with follow up with Dr. Owen in 2-4 weeks, will need CTA head/neck/CAP to evaluate for FMD as outpatient
Dyslipidemia
-Increase rosuvastatin to 40 nightly
Migraine: hold triptan given SCAD
Osteoporosis
Subjective: pain resolved, no events on tele
Physical Exam
Vital Signs/Labs
Vital Signs
Temp Pulse Resp BP Pulse Ox
36.4 C 63 18 110/66 99
08/02/24 11:15 08/02/24 11:00 08/02/24 11:15 08/02/24 09:40 08/02/24 11:15
08/01/24 08/02/24 08/03/24
06:59 06:59 06:59
Actual Weight 54.2 kg
08/02/24 04:43
08/02/24 10:45
APTT Cancelled 08/01/24 11:30
Magnesium 2.1 mg/dl (1.6-2.3) 08/02/24 10:45
Triglycerides 69 mg/dl (10-149) 08/02/24 04:43
LDL Cholesterol, Calc 71 mg/dl 08/02/24 04:43
VLDL Cholesterol, Calc 13 mg/dl (0-30) 08/02/24 04:43
HDL Cholesterol 65 mg/dl 08/02/24 04:43
LAB Results
07/31/24 07/31/24 07/31/24
15:22 18:47 19:01
Troponin I 0.038 H* 7.530 H* D Cancelled
08/01/24 08/01/24 08/01/24
00:30 01:17 05:23
Troponin I Cancelled 31.200 H* D 31.300 H*
08/01/24 08/01/24 08/02/24
08:39 16:03 00:14
Troponin I 31.300 H* 21.400 H* D 19.100 H*
08/02/24
04:43
Troponin I 14.500 H*
Physical Exam
Constitutional: No acute distress
Cardiovascular: Rhythm & rate is regular
Respiratory: Respiratory effort normal
Neuro/Psych: AO x 3
Data Reviewed
-
Date of Service: August 02, 2024
Medical Decision Making: Reviewed Test Results
EKG: Tracing Personally Visualized and interpreted
Labs: Labs Reviewed by me
[2024-08-02 15:55] VITALS: BP 93/68
--- NOTE | 2024-08-02 16:36 | W.DCSUMMARY ---
Discharge Summary
Discharge Data
Date of Admission: 07/31/24
Date of Discharge: 08/02/24
Total time spent discharging patient (in min): 37
-
Pending Results: No
Hospital Course
59-year-old female with past medical history of hemochromatosis, osteoporosis, hyperlipidemia and migraines, presented with chest pain. Patient was diagnosed with NSTEMI, given Aspirin and started on Heparin and Nitroglycerin drips. On August 01,
2023, patient had cardiac cath, and per cardiology catheterization report, it showed:
'CONCLUSIONS
1. 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
2. Low normal left ventricular systolic function visually estimated at 50% with an anterolateral wall motion abnormality noted.'
Patient had a transthoracic echocardiogram on 08/02/24, and it showed per hunting sales leader's report:
'CONCLUSIONS
Normal left ventricular size and wall thickness. There is mild hypokinesis of
the basal lateral/inferolateral wall with preserved systolic function. LV
ejection fraction is 59% by volumetric assessment. Normal diastolic function.
Normal right ventricular size and function.
Normal atria.
No significant valve abnormalities.
No evidence of pulmonary hypertension.'
It was recommended that patient stop taking Rizatriptan (and follow-up with neurology outpatient), continue dual antiplatelet therapy with Aspirin and Clopidogrel for 3-6 months, continue beta marci titrated as heart rate and blood pressure would
tolerate, follow-up for evaluation of possible concomitant fibromuscular dysplasia as outpatient, and follow exercise limit to 50-70% of PMHR, and avoid lifting more than 20-30 pounds.
Discharge Plan
-
Patient Disposition: Home (Routine Discharge)
Discharge Diagnosis/Procedures: NSTEMI with positive troponin and typical anginal symptoms likely associated with left circumflex spontaneous coronary artery dissection (SCAD)
New, mild hypokinesis of the basal lateral/inferolateral wall with preserved systolic function, as per hunting sales leader on echocardiogram
Hemochromatosis
Osteoporosis
Hyperlipidemia
Migraines
Condition: Good
Diet: Low Fat, Low Cholesterol, Low Sodium and 2 Gram Sodium
Activity: No strenuous activity
Additional Activity: See attached instructions
Activity Restrictions/Additional Instructions:
Exercise limit to 50-70% of predicted maximum heart rate, and avoid lifting more than 20-30 pounds.
You will need CTA head/neck/CAP to evaluate for FMD (fibromuscular dysplasia) as outpatient -- discuss with your outpatient providers including cardiology.
Stop Rizatriptan (given your cardiac diagnosis) and follow-up/discuss with outpatient neurology.
Stand Alone Forms: DC Instructions- Cath/EP Lab
Referrals:
Leonor Mccain CRNP [Specified Professional Personl] - 08/25/24 2:20 pm
Lindy Tran MD [Family Provider] -
Additional Discharge Medication Instructions: Aspirin, Clopidogrel and Metoprolol Succinate are new medications.
You need to continue Aspirin 81 mg daily AND Plavix 75 mg daily for 3 to 6 months, but you need to continue Aspirin 81 mg daily indefinitely.
Rosuvastatin has been increased to 40 mg from 20 mg.
Rizatriptan stopped.
Prescriptions:
New
aspirin 81 mg Tablet,Chewable
81 mg PO DAILY Qty: 30 4RF
clopidogrel 75 mg Tablet
75 mg PO DAILY Qty: 90 1RF
metoprolol succinate 25 mg Tablet Extended Release 24 Hr
25 mg PO BID Qty: 60 2RF
rosuvastatin 40 mg Tablet
40 mg PO QPM Qty: 90 0RF
Continued
magnesium oxide 400 MG capsule
1 cap PO DAILY
cholecalciferol (vitamin D3) [Vitamin D3] 25 mcg (1,000 unit) Capsule
25 mcg PO DAILY
Nurtec ODT 75 mg Tablet,Disintegrating
75 mg PO Q48H
acetaminophen [Tylenol] 325 mg Tablet
650 mg PO DAILYPRN PRN (Reason: mild pain)
alendronate [Fosamax] 70 mg Tablet
70 mg PO TU
Discontinued
rosuvastatin 10 mg Tablet
10 mg PO HS
rizatriptan 10 mg Tablet
0 mg PO .COMPLEX
Rx Instructions:
take 1 tab at onset of headache; if no relief may repeat 1 tab after at least 2 hrs; max = 3 tabs/24 hr
Discharge Orders:
Discharge Patient (As Directed); Ordered 08/02/24
Ordered By: Price Hui
Care Plan Goals
Care Plan Goals:
Problem: Readiness for enhanced knowledge related to diagnosis and treatment plan
Goal: Understand your diagnosis and treatment plan needs, including medications if applicable.
Instructions: Know your diagnosis, underlying causes and treatment plan options, including medications if applicable. Consult with your health care team to learn about your diagnosis and treatment plan, including medications if applicable.
Discharge Date and Time
Discharge Date/Time: 08/02/24 17:58
Print Language: ANDORRAN
--- NOTE | 2024-08-02 16:58 | CM ---
Reviewed chart. Met with and Mrs. Torres to review discharge plans. She states prior to admission she resides with her spouse in a two sot ry home with two steps to enter. She states she has a full lfight of steps to get to bedroom/full bathroom.
She states she has a powder room on the first floor. She states prior to admission she was independent with ambulation and adls. She states she does not have any DME in the home. She states she has a prescription plan and uses [facility] pharmacy.
Medical work-up in progress. The discharge plan is to return home with her spouse when medically stable.
== END 2024-08-02 17:58 | disposition home or self-care (01) | DRG 280 ==
LOC: IVU 16:57
PROVIDERS: Internal Medicine Interventional Cardiology; ADMITTING PHYSICIAN Hospitalist; ATTENDING PHYSICIAN Hospitalist; EMERGENCY PHYSICIAN Emergency Medicine; FAMILY PHYSICIAN Family Medicine; OTHER PHYSICIAN Internal Medicine Cardiovascular Disease
PROC: B2151ZZ Fluoroscopy of Left Heart using Low Osmolar Contrast (ICD-10-PCS; 2024-08-01)
PROC: B2111ZZ Fluoroscopy of Multiple Coronary Arteries using Low Osmolar Contrast (ICD-10-PCS; 2024-08-01)
PROC: 4A023N7 Measurement of Cardiac Sampling and Pressure, Left Heart, Percutaneous Approach (ICD-10-PCS; 2024-08-01)
DX: I21.4 Non-ST elevation (NSTEMI) myocardial infarction (principal); I25.42 Coronary artery dissection; E83.118 Other hemochromatosis; M81.0 Age-related osteoporosis without current pathological fracture; E78.5 Hyperlipidemia, unspecified; G43.909 Migraine, unspecified, not intractable, without status migrainosus; Z82.49 Family history of ischemic heart disease and other diseases of the circulatory system; Z79.83 Long term (current) use of bisphosphonates
CPT/HCPCS: 71046; 80053; 80061; 82728; 83036; 83540; 83550; 83735; 84484; 85025; 85027; 85347; 85730; 93005; 93306; 93458; 96365; 96366; 96367; 99285; C1894; Q9967

== ENCOUNTER 2024-08-20 09:08 | Emergency (ER) | payer OTHER, SELFPAY ==
[2024-08-20 09:09] VITALS: BP 130/84
[2024-08-20 09:17] VITALS: BMI 19.7
[2024-08-20 09:22] VITALS: BP 120/58
[2024-08-20 09:28] LABS: % Eosinophils 0.8 % (0-6); % Immature Granulocytes 0.3 % (0-0.5); % Lymphocytes 20.3 % (20.5-51.1); % Neutrophils 69.6 % (42.2-75.2); Absolute Basophils 0.1 10^3/uL (0-0.2); Absolute Eosinophils 0.1 10^3/uL (0-0.7); Absolute Lymphocytes 1.2 10^3/uL (1.2-3.4); Absolute Monocytes 0.5 10^3/uL (0.1-0.6); Absolute Neutrophils 4.2 10^3/uL (1.4-6.5); Hemoglobin 15.5 g/dL (12.0-16.0); Mean Corp Hgb Conc. 34.4 g/dL (33.0-37.0); Mean Corpuscular Hgb 31.7 pg (27.0-31.0); Mean Platelet Volume 8.4 fL (7.4-10.4); Nucleated Red Blood Cells % 0 %; Platelet Count 280 10^3/uL (130-400); Red Blood Cell Count 4.89 10^6/uL (4.20-5.40); Red Cell Dist. Width 12.3 % (11.5-14.5)
--- NOTE | 2024-08-20 09:29 | ED.GENMED ---
History of Present Illness
General
Chief Complaint: Chest Pain
Source: patient
Exam Limitations: none
Time Seen by Provider: 08/20/24 09:14
Nursing documentation reviewed up to this point in time: agreed with
History of Present Illness
History of Present Illness:
Patient is a 59-year-old female who presents to the ER for evaluation of chest pain. Patient started with chest pain around 6 PM last night while sitting having dinner and lasted for 1 to 2 hours. She had no radiation or shortness of breath with
pain. She reports she had pain on and and off last night but this morning her left arm felt wonky which is what brought her to the ER today. She does have history of NSTEMI and left circumflex spontaneous coronary artery dissection in July
2023. She reports her symptoms are not similar to when she presented in July. She has no associated nausea vomiting or diaphoresis. No associated shortness of breath.
patient has been on aspirin Plavix and metoprolol and did take her morning medications. She is currently asymptomatic. She does feel very anxious has a history of anxiety and does believe this is anxiety but was unsure with previous history
presented to the ER.
She is scheduled to see the cardiology nurse practitioner on Friday and until the summer for Dr. Hodges.
Review of Systems
Review of Systems
Allergies reviewed?: Yes
All Other Systems: ROS reviewed and negative except as documented in HPI and ROS
Constitutional: Reports no symptoms; Denies fever, fatigue or chills
Respiratory: Reports no symptoms
Cardiac: Reports chest pain; Denies diaphoresis, palpitations or syncope
: Reports no symptoms
Musculoskeletal: Reports no symptoms
Neurological: Reports no symptoms
Psychiatric: Reports no symptoms
Phy Exam
General Physical Exam
General Presentation: no apparent distress
General age: appears stated age
General Skin: warm and dry
General Habitus: normal
General Mental: alert
General Hydration: appears well hydrated
Cardiovascular Exam
Cardiovascular Exam: regular rate/rhythm, no murmur and normal peripheral pulses
Scores
Heart Score for Chest Pain Patients
STEMI patient?: Not applicable
Course
Orders/Labs/Results
Orders:
Orders
08/20/24 09:09
ECG [Electrocardiogram (*1)] Urgent
Reason for Study: Chest Pain
EKG- Treatment ONCE
08/20/24 09:20
CMP [Comprehensive Metabolic Panel] Urgent
Complete Blood Count/With Diff Urgent
Troponin I Urgent
08/20/24 10:11
Chest [CR Chest - 2 Views ] Urgent
Comment:
Reason For Exam: cp
08/20/24 10:58
Electrocardiogram (*1) Stat
Reason for Study: Other
Other Reason for Exam: chest pain
EKG- Treatment ONCE
08/20/24 12:16
Troponin I Urgent
Abnormal Lab Results
08/20/24
09:20
MCH 31.7 H pg
(27.0-31.0)
Lymphocytes % 20.3 L %
(20.5-51.1)
Glucose 107 H mg/dl
(70-99)
08/20/24 09:20
08/20/24 09:20
Vital Signs
Initial and Last Documented VS:
Initial Vital Signs
Temp Pulse Resp BP Pulse Ox
98.3 F 74 16 130/84 98
08/20/24 09:09 08/20/24 09:09 08/20/24 09:09 08/20/24 09:09 08/20/24 09:09
Last Documented Vital Signs
Temp Pulse Resp BP Pulse Ox
98.3 F 79 14 115/71 99
08/20/24 09:09 08/20/24 14:00 08/20/24 14:00 08/20/24 13:00 08/20/24 14:00
Tube Coremaker consulted with Physician
Tube Coremaker consulted with physician?: Yes
Name of Physician Consulted: flaca
MDM/Problems Addressed
MDM/Problems Addressed:
Patient is a 59-year-old female who presents to the ER for chest pain that started last evening on throughout the night and noticed a mild left arm discomfort this morning. She does have history of NSTEMI/scad in July. She reports that
symptoms were different than previous presentation in July. She does report she is very anxious and feels that this is anxiety. She has no associated shortness of breath. She does have a history of anxiety and has not been able to exercise/to
yoga since previous cardiac episode. She presents awake alert no acute distress asymptomatic. 2 cardiac troponins negative no acute signs of EKG.
Case discussed with ED physician Case discussed with Dr. Esposito. Patient is scheduled to see cardiology nurse practitioner on Friday and Dr. Owen in the summer will have patient follow-up as scheduled. She is to return if any worsening
*Radiology
Radiology exam reviewed: radiology read reviewed
*Pulse Oximetry
Patient hypoxic: no
*EKG
Interpreted by ED Provider?: Yes
Heart Rate: 85
Rate: normal
Rhythm: sinus
*Critical Care Note
Total Time (30-74mins, 75-104mins- exclusive of procedures): Not Applicable
Data Reviewed
Review of Other/Old Records Reveals: Labs, Progress Notes and Discharge Summary
Source: patient
Patient Management
Discussion with other providers: Survey Statistician (cardiology )
ED Attending Note
-
Portions of this chart may have been created with voice recognition software.� Occasional wrong word or��sound alike� substitutions may have occurred due to the inherent limitations of voice recognition software.
Discharge Plan
Departure
Patient Disposition: Home (Routine Discharge)
Date of Disposition: 08/20/24
Time of Disposition: 14:22
Patient with high blood pressure during this ER visit?: No
Condition: Fair
Covid-19: Not Applicable
Discharge Problem:
Chest pain
Instructions: Chest Pain CBC Follow Up, BLOOD PRESSURE
Prescriptions:
No Action
magnesium oxide 400 MG capsule
1 cap PO DAILY
cholecalciferol (vitamin D3) [Vitamin D3] 25 mcg (1,000 unit) Capsule
25 mcg PO DAILY
Nurtec ODT 75 mg Tablet,Disintegrating
75 mg PO Q48H
acetaminophen [Tylenol] 325 mg Tablet
650 mg PO DAILYPRN PRN (Reason: mild pain)
alendronate [Fosamax] 70 mg Tablet
70 mg PO TU
aspirin 81 mg Tablet,Chewable
81 mg PO DAILY Qty: 30 4RF
clopidogrel 75 mg Tablet
75 mg PO DAILY Qty: 90 1RF
metoprolol succinate 25 mg Tablet Extended Release 24 Hr
25 mg PO BID Qty: 60 2RF
rosuvastatin 40 mg Tablet
40 mg PO QPM Qty: 90 0RF
Referrals:
Lindy Tran MD [Family Provider] -
Marylu Owen MD [Active] -
Activity Restrictions/Additional Instructions:
Follow-up with cardiology nurse practitioner as scheduled on Friday. Return if any worsening of symptoms.
Interventions
Interventions:
*Risk Screen - Suicide Last Done: 08/20/24 09:09
*General Assessment Last Done: 08/20/24 09:09
*Neglect/Abuse Screening Last Done: 08/20/24 09:09
ED- Fall Risk Assessment Last Done: 08/20/24 09:19
*ED COVID-19 Vaccine History Last Done: 08/20/24 09:19
ED- Cardiac Assessment Last Done: 08/20/24 09:19
Discharge Date and Time
Print Language: MICRONESIAN
[2024-08-20 09:51] LABS: ALT (SGPT) 16 U/L (0-35); AST (SGOT) 21 U/L (14-36); Albumin 4.6 g/dl (3.5-5.0); Alkaline Phosphatase 47 U/L (38-126); Blood Urea Nitrogen 16 mg/dl (7-17); Calcium 9.6 mg/dl (8.4-10.2); Carbon Dioxide 29 mmol/L (22-30); Chloride 103 mmol/L (98-107); Estimated Creatinine Clearance 74 ml/min; Glucose 107 mg/dl (70-99); Potassium 4.3 mmol/L (3.5-5.1); Sodium 139 mmol/L (135-145); Total Bilirubin 0.9 mg/dl (0.2-1.3); eGFR > 60.00
[2024-08-20 09:56] LABS: Troponin I 0.031 ng/ml
[2024-08-20 10:00] VITALS: BP 111/76
[2024-08-20 11:00] VITALS: BP 115/75
[2024-08-20 12:00] VITALS: BP 114/70
[2024-08-20 13:00] VITALS: BP 115/71
== END 2024-08-20 14:46 | disposition home or self-care (01) ==
LOC: EMR 09:08
PROVIDERS: Nurse Practitioner; EMERGENCY PHYSICIAN Student in an Organized Health Care Education/Training Program; FAMILY PHYSICIAN Family Medicine
DX: R07.9 Chest pain, unspecified (principal); I25.2 Old myocardial infarction; F41.9 Anxiety disorder, unspecified
CPT/HCPCS: 99285; 71046; 80053; 84484; 85025; 93005

== ENCOUNTER → 2024-09-02 13:16 | Outpatient (REF) | payer OTHER, SELFPAY | LOC: RAD 13:16 | PROVIDERS: ATTENDING PHYSICIAN Nurse Practitioner; FAMILY PHYSICIAN Family Medicine | DX: I25.42 Coronary artery dissection (principal) | CPT/HCPCS: 71275; 74174 ==

== ENCOUNTER → 2024-09-07 11:20 | Outpatient (REF) | payer OTHER, SELFPAY | LOC: RAD 11:20 | PROVIDERS: ATTENDING PHYSICIAN Nurse Practitioner; FAMILY PHYSICIAN Family Medicine | DX: I25.42 Coronary artery dissection (principal) | CPT/HCPCS: 70496; 70498; Q9967 ==

== ENCOUNTER → 2024-09-09 08:59 | Outpatient (REF) | payer OTHER, SELFPAY | LOC: PAVMRI 08:59 | PROVIDERS: ATTENDING PHYSICIAN Nurse Practitioner Adult Health; FAMILY PHYSICIAN Family Medicine | DX: K86.2 Cyst of pancreas (principal) | CPT/HCPCS: 74183; A9575 ==

== ENCOUNTER 2024-10-01 16:47 | Outpatient (RCR) | payer OTHER, SELFPAY | END 2024-10-01 23:59 | disposition home or self-care (01) | LOC: CRHB 16:47 | PROVIDERS: ATTENDING PHYSICIAN Internal Medicine Cardiovascular Disease; FAMILY PHYSICIAN Family Medicine | DX: I21.4 Non-ST elevation (NSTEMI) myocardial infarction (principal); I25.2 Old myocardial infarction (principal) | CPT/HCPCS: 93797; 93798 ==

== ENCOUNTER 2024-10-29 16:21 | Outpatient (RCR) | payer OTHER, SELFPAY | END 2024-10-29 23:59 | disposition home or self-care (01) | LOC: CRHB 16:21 | PROVIDERS: ATTENDING PHYSICIAN Internal Medicine Cardiovascular Disease; FAMILY PHYSICIAN Family Medicine | DX: I21.4 Non-ST elevation (NSTEMI) myocardial infarction (principal); I25.2 Old myocardial infarction (principal) | CPT/HCPCS: 93797; 93798 ==

== ENCOUNTER 2024-11-24 16:52 | Outpatient (RCR) | payer OTHER, SELFPAY | END 2024-11-24 23:59 | disposition home or self-care (01) | LOC: CRHB 16:52 | PROVIDERS: ATTENDING PHYSICIAN Internal Medicine Cardiovascular Disease; FAMILY PHYSICIAN Family Medicine | DX: I21.4 Non-ST elevation (NSTEMI) myocardial infarction (principal); I25.2 Old myocardial infarction | CPT/HCPCS: 93797; 93798 ==

== ENCOUNTER 2024-11-25 13:34 | Outpatient (RCR) | payer OTHER, SELFPAY ==
[2024-11-25 13:50] VITALS: BP 112/59
[2024-11-25 14:40] VITALS: BP 100/62
[2024-11-25 14:45] VITALS: BP 108/68
== END 2024-12-01 23:59 | disposition home or self-care (01) ==
LOC: OID 13:34
PROVIDERS: ATTENDING PHYSICIAN Nurse Practitioner Adult Health; FAMILY PHYSICIAN Family Medicine
DX: E83.110 Hereditary hemochromatosis (principal)
CPT/HCPCS: 99195

== ENCOUNTER 2025-01-24 14:28 | Outpatient (RCR) | payer OTHER, SELFPAY ==
[2025-01-24 14:30] VITALS: BP 160/58
[2025-01-24 15:30] VITALS: BP 103/69
[2025-01-24 15:35] VITALS: BP 103/64
== END 2025-01-31 23:59 | disposition home or self-care (01) ==
LOC: OID 14:28
PROVIDERS: ATTENDING PHYSICIAN Nurse Practitioner Adult Health; FAMILY PHYSICIAN Family Medicine
DX: E83.110 Hereditary hemochromatosis (principal)
CPT/HCPCS: 99195

== ENCOUNTER → 2025-04-27 07:33 | Outpatient (REF) | payer OTHER, SELFPAY | LOC: MRI 3T 07:33 | PROVIDERS: ATTENDING PHYSICIAN Internal Medicine Gastroenterology; FAMILY PHYSICIAN Family Medicine | DX: K86.2 Cyst of pancreas (principal) | CPT/HCPCS: 74183; A9575 ==

== ENCOUNTER 2025-05-31 13:50 | Outpatient (RCR) | payer OTHER, SELFPAY ==
[2025-05-31 14:10] VITALS: BP 95/44
[2025-05-31 14:50] VITALS: BP 105/57
[2025-05-31 14:55] VITALS: BP 105/76
== END 2025-06-03 23:59 | disposition home or self-care (01) ==
LOC: OID 13:50
PROVIDERS: ATTENDING PHYSICIAN Internal Medicine Hematology & Oncology; FAMILY PHYSICIAN Family Medicine
DX: E83.110 Hereditary hemochromatosis (principal)
CPT/HCPCS: 99195

== ENCOUNTER → 2025-06-08 13:51 | Outpatient (REF) | payer OTHER, SELFPAY | LOC: HWWDC 13:51 | PROVIDERS: ATTENDING PHYSICIAN Family Medicine | DX: Z12.31 Encounter for screening mammogram for malignant neoplasm of breast (principal) | CPT/HCPCS: 77063; 77067 ==